=== PATIENT | male | born 1950 | race Caucasian/White ===

== ENCOUNTER 2017-11-19 10:12 | Emergency (ER) | payer OTHER ==
[2017-11-19 10:42] LABS: Absolute Lymphocytes (CBC) 1.6 K/uL (0.7-4.9); Absolute Monocytes 0.8 K/uL (0.1-1.3); Absolute Neutrophil 4.7 K/uL (1.8-8.0); Basophils % 0.6 % (0-1.3); Eosinophils % 1.7 % (0-4.4); Hematocrit 36.2 % (39.6-49.0); Lymphocytes % 21.5 % (15.3-44.8); MCH 26.4 pg (27.0-35.0); MCV 79.3 fL (80-100); MPV 8.2 fL (7.6-11.3); Monocytes % 11.2 % (3.3-12.3); RBC Red Blood Cell Count 4.56 M/uL (4.33-5.43)
[2017-11-19 10:45] LABS: Protime INR 1.05
--- NOTE | 2017-11-19 10:52 | RAD REPORT ---
EXAM DESCRIPTION: RAD - Chest Single View - 11/19/2017 10:46 am CLINICAL HISTORY: CHEST PAIN Chest pain. COMPARISON: No comparisons FINDINGS: Portable technique limits examination quality. The lungs are grossly clear. The heart is upper limit normal with changes of prior CABG. No displaced fractures. IMPRESSION: No acute intrathoracic process suspected.
[2017-11-19 11:01] LABS: Albumin 3.7 g/dL (3.4-5.0); Bilirubin Direct 0.2 mg/dL (0-0.2); Bilirubin Total 0.8 mg/dL (0.2-1.0); Magnesium 2.1 mg/dL (1.8-2.4); Potassium 4.1 mmol/L (3.5-5.1); Protein, Total 7.5 g/dL (6.4-8.2); Troponin (Emerg Dept Use Only) 0.15 ng/mL (0.0-0.045)
[2017-11-19] MEDS ORDERED: NA CHLORIDE 0.9% 1,000 ML ONE (11:22)
--- NOTE | 2017-11-19 11:41 | ER ---
Nurse's Notes [facility] Name: Elia Joshua Age: 67 yrs Sex: Male : 1950 Arrival Date: 11/19/2017 Time: 10:18 Bed 6 Private MD: Diagnosis: Chest pain, unspecified;Type 2 diabetes mellitus;Essential (primary) hypertension;Non-ST elevation (NSTEMI) myocardial infarction Presentation: 11/19 10:18 Presenting complaint: Patient states: chest pain that began 1 week ago. Pt was sent aa5 [facility] Pt reports he had CABG completed at the [facility] approximately 3 months ago and is currently taking Levaquin for a surgical site infection. Transition of care: patient was not received from another setting of care. Onset of symptoms was November 2017. Risk Assessment: Do you want to hurt yourself or someone else? Patient reports no desire to harm self or others. Initial Sepsis Screen: Does the patient meet any 2 criteria? No. Patient's initial sepsis screen is negative. Does the patient have a suspected source of infection? Yes: Other: surgical site infection. Care prior to arrival: Medication(s) given: ASA, 81 mg, x 4. 10:18 Method Of Arrival: EMS: [facility] aa5 10:18 Acuity: STEPHEN 2 aa5 Historical: - Allergies: 10:19 "a lot of cholesterol medicines"; aa5 - Home Meds: 10:25 Levaquin Oral [Active]; Metoprolol Tartrate Oral [Active]; Metformin Oral [Active]; aa5 atorvastatin oral oral [Active]; Aspirin Oral [Active]; - PMHx: 10:19 Hypertension; Hyperlipidemia; Diabetes - NIDDM; aa5 - PSHx: 10:19 CABG; Hand; Eye; aa5 - Immunization history:: Adult Immunizations. - Ebola Screening: : No symptoms or risks identified at this time. - Family history:: not pertinent. Screenin:20 Abuse screen: Denies threats or abuse. Nutritional screening: No deficits noted. aa5 Tuberculosis screening: No symptoms or risk factors identified. Fall Risk None identified. Assessment: 10:18 General: Appears comfortable, Behavior is calm, cooperative. Pain: Complains of pain in aa5 left shoulder, left scapula, and mid-sternal Pain does not radiate. Pain currently is 3 out of 10 on a pain scale. Quality of pain is described as pressure, sharp, Pain began 1 week ago Is continuous. Neuro: Level of Consciousness is awake, alert, obeys commands, Oriented to person, place, time, situation. Cardiovascular: Heart tones S1 S2 present Surgical incision noted to mid-sternal area, mildly red and with edges well-approximated, no drainage noted, small amount of scabs noted to site. . Rhythm is regular. Respiratory: Airway is patent Respiratory effort is even, unlabored, Respiratory pattern is regular, symmetrical, Breath sounds are clear bilaterally. GI: Abdomen is round non-distended, Bowel sounds present X 4 quads. Abd is soft and non tender X 4 quads. : No signs and/or symptoms were reported regarding the genitourinary system. EENT: No signs and/or symptoms were reported regarding the EENT system. Derm: Skin is pink, warm \\T\\ dry. Musculoskeletal: Range of motion: intact in all extremities. 11:00 Reassessment: Patient and/or family updated on plan of care and expected duration. Pain aa5 level reassessed. Patient is alert, oriented x 3, equal unlabored respirations, skin warm/dry/pink. Pain: Pain currently is 3 out of 10 on a pain scale. 12:00 Reassessment: Patient and/or family updated on plan of care and expected duration. Pain aa5 level reassessed. Patient is alert, oriented x 3, equal unlabored respirations, skin warm/dry/pink. 12:00 Pain: Pain currently is 4 out of 10 on a pain scale. aa5 13:00 Reassessment: Patient and/or family updated on plan of care and expected duration. Pain aa5 level reassessed. Patient is alert, oriented x 3, equal unlabored respirations, skin warm/dry/pink. 13:00 Pain: Pain currently is 2 out of 10 on a pain scale. aa5 14:00 Reassessment: Patient and/or family updated on plan of care and expected duration. Pain aa5 level reassessed. Patient is alert, oriented x 3, equal unlabored respirations, skin warm/dry/pink. Awaiting EMS for transfer . Pain: Pain currently is 2 out of 10 on a pain scale. 14:22 Reassessment: Patient is alert, oriented x 3, equal unlabored respirations, skin aa5 warm/dry/pink. Vital Signs: 10:20 BP 163 / 83; Pulse 70; Resp 14 S; Temp 98.1(O); Pulse Ox 98% on R/A; Weight 74.84 kg aa5 (R); Height 5 ft. 8 in. (172.72 cm) (R); Pain 3/10; 11:00 BP 127 / 76; Pulse 66; Resp 17; Pulse Ox 99% on R/A; tw2 12:00 BP 117 / 72; Pulse 61; Resp 16 S; Pulse Ox 98% on R/A; aa5 12:46 BP 115 / 82; Pulse 59; Resp 16; Pulse Ox 97% on R/A; tw2 13:15 BP 121 / 74; Pulse 55; Resp 24; Pulse Ox 97% on R/A; em1 14:11 BP 122 / 65; Pulse 56; Resp 16 S; Pulse Ox 98% on R/A; aa5 10:20 Body Mass Index 25.09 (74.84 kg, 172.72 cm) aa5 ED Course: 10:18 Patient arrived in ED. aa5 10:18 Arm band placed on Patient placed in an exam room, on a stretcher. aa5 10:18 Patient has correct armband on for positive identification. Placed in gown. Bed in low aa5 position. Call light in reach. Side rails up X2. cafeteria monitor on. Pulse ox on. NIBP on. 10:18 Patient maintains SpO2 saturation greater than 95% on room air. aa5 10:18 No provider procedures requiring assistance completed. aa5 10:19 Jaden Arriaga MD is Attending Physician. spenser 10:21 Triage completed. aa5 10:24 Suyapa Cross, NUSRAT is Primary Nurse. aa5 10:25 Initial lab(s) drawn, by ED staff, sent to lab. Inserted saline lock: 20 gauge in right aa5 hand, using aseptic technique. IV inserted by Vamsi Carlin technical writing lead/mgr. 10:26 EKG done, by artificial breeding technician. reviewed by Jaden Arriaga MD. at1 10:44 XRAY Chest (1 view) In Process Unspecified. EDMS 13:43 Report given to Yelena Mckinney RN at [facility]# [phone]. tw2 14:23 Patient transferred, IV remains in place. aa5 Administered Medications: 10:40 Drug: NS 0.9% 1000 ml Route: IV; Rate: 125 ml/hr; Site: right hand; aa5 14:00 Follow up: IV Status: Infusion continued upon transfer aa5 12:02 Drug: Zofran 4 mg Route: IVP; Site: right hand; tw2 12:15 Follow up: Response: No adverse reaction aa5 12:04 Drug: morphine 2 mg Route: IVP; Site: right hand; tw2 12:15 Follow up: Response: No adverse reaction aa5 12:06 Drug: Pepcid 20 mg Route: IVP; Site: right hand; tw2 12:15 Follow up: Response: No adverse reaction aa5 12:08 Drug: Lovenox 1 mg/kg Route: Sub-Q; Site: right lower abdomen; tw2 13:00 Follow up: Response: No adverse reaction aa5 12:09 Drug: Lopressor 25 mg Route: PO; tw2 13:00 Follow up: Response: No adverse reaction aa5 Outcome: 11:40 ER care complete, transfer ordered by MD. dueñas 14:22 Transferred by ground EMS to [facility] Transfer form completed. aa5 X-rays sent w/ patient. 14:22 Condition: stable 14:22 Instructed on the need for transfer, Demonstrated understanding of instructions. 14:23 Patient left the ED. aa5 Signatures: Dispatcher [employer] EDMS Jaden Arriaga MD MD cha Martinez, Eric em1 Suyapa Cross, RN RN aa5 Carmen Bender, flight operation coordinator EKG Tat1 Sharmila Lainez RN RN tw2 Corrections: (The following items were deleted from the chart) 13:16 13:13 BP 127 / 77; Pulse 100bpm; Resp 11bpm; Pulse Ox 100%; em1 em1
--- NOTE | 2017-11-19 11:41 | EDPHYS ---
Physician Documentation [facility] Name: Elia Joshua Age: 67 yrs Sex: Male : 1950 Arrival Date: 11/19/2017 Time: 10:18 Bed 6 Private MD: ED Physician Jaden Arriaga HPI: 11/19 11:33 This 67 yrs old Male presents to ER via EMS with complaints of Chest Pain. spenser 11:33 The patient or guardian reports chest pain that is located primarily in the substernal spenser area, anterior chest wall. Onset: 2 day(s) ago. The pain radiates to Associated signs and symptoms: The patient has no apparent associated signs or symptoms. The chest pain is described as a pressure, squeezing. Duration: The patient or guardian reports a single episode, that is still ongoing, but improving. Modifying factors: The symptoms are alleviated by. Severity of pain: At its worst the pain was moderate in the emergency department the pain has improved moderately. Historical: - Allergies: 10:19 "a lot of cholesterol medicines"; aa5 - Home Meds: 10:25 Levaquin Oral [Active]; Metoprolol Tartrate Oral [Active]; Metformin Oral [Active]; aa5 atorvastatin oral oral [Active]; Aspirin Oral [Active]; - PMHx: 10:19 Hypertension; Hyperlipidemia; Diabetes - NIDDM; aa5 - PSHx: 10:19 CABG; Hand; Eye; aa5 - Immunization history:: Adult Immunizations. - Ebola Screening: : No symptoms or risks identified at this time. - Family history:: not pertinent. ROS: 11:33 Constitutional: Negative for fever, chills, and weight loss, Eyes: Negative for injury, spenser pain, redness, and discharge, ENT: Negative for injury, pain, and discharge, Neck: Negative for injury, pain, and swelling, Respiratory: Negative for shortness of breath, cough, wheezing, and pleuritic chest pain, Abdomen/GI: Negative for abdominal pain, nausea, vomiting, diarrhea, and constipation, Back: Negative for injury and pain, : Negative for injury, bleeding, discharge, and swelling, MS/Extremity: Negative for injury and deformity, Skin: Negative for injury, rash, and discoloration, Neuro: Negative for headache, weakness, numbness, tingling, and seizure, Psych: Negative for depression, anxiety, suicide ideation, homicidal ideation, and hallucinations, Allergy/Immunology: Negative for hives, rash, and allergies, Endocrine: Negative for neck swelling, polydipsia, polyuria, polyphagia, and marked weight changes, Hematologic/Lymphatic: Negative for swollen nodes, abnormal bleeding, and unusual bruising. 11:33 Cardiovascular: Positive for chest pain, of the chest. Exam: 11:33 Constitutional: This is a well developed, well nourished patient who is awake, alert, spenser and in no acute distress. Head/Face: Normocephalic, atraumatic. Eyes: Pupils equal round and reactive to light, extra-ocular motions intact. Lids and lashes normal. Conjunctiva and sclera are non-icteric and not injected. Cornea within normal limits. Periorbital areas with no swelling, redness, or edema. ENT: Nares patent. No nasal discharge, no septal abnormalities noted. Tympanic membranes are normal and external auditory canals are clear. Oropharynx with no redness, swelling, or masses, exudates, or evidence of obstruction, uvula midline. Mucous membranes moist. Neck: Trachea midline, no thyromegaly or masses palpated, and no cervical lymphadenopathy. Supple, full range of motion without nuchal rigidity, or vertebral point tenderness. No Meningismus. Chest/axilla: Normal chest wall appearance and motion. Nontender with no deformity. No lesions are appreciated. Respiratory: Lungs have equal breath sounds bilaterally, clear to auscultation and percussion. No rales, rhonchi or wheezes noted. No increased work of breathing, no retractions or nasal flaring. Abdomen/GI: Soft, non-tender, with normal bowel sounds. No distension or tympany. No guarding or rebound. No evidence of tenderness throughout. Back: No spinal tenderness. No costovertebral tenderness. Full range of motion. Skin: Warm, dry with normal turgor. Normal color with no rashes, no lesions, and no evidence of cellulitis. MS/ Extremity: Pulses equal, no cyanosis. Neurovascular intact. Full, normal range of motion. Neuro: Awake and alert, GCS 15, oriented to person, place, time, and situation. Cranial nerves II-XII grossly intact. Motor strength 5/5 in all extremities. Sensory grossly intact. Cerebellar exam normal. Normal gait. Psych: Awake, alert, with orientation to person, place and time. Behavior, mood, and affect are within normal limits. 11:33 Cardiovascular: Rate: normal, Rhythm: regular, Pulses: Pulses are 4+ in bilateral radial, brachial, femoral, popliteal, posterior tibial and and dorsalis pedis arteries.. Heart sounds: normal, Edema: is not appreciated. Vital Signs: 10:20 BP 163 / 83; Pulse 70; Resp 14 S; Temp 98.1(O); Pulse Ox 98% on R/A; Weight 74.84 kg aa5 (R); Height 5 ft. 8 in. (172.72 cm) (R); Pain 3/10; 11:00 BP 127 / 76; Pulse 66; Resp 17; Pulse Ox 99% on R/A; tw2 12:00 BP 117 / 72; Pulse 61; Resp 16 S; Pulse Ox 98% on R/A; aa5 12:46 BP 115 / 82; Pulse 59; Resp 16; Pulse Ox 97% on R/A; tw2 13:15 BP 121 / 74; Pulse 55; Resp 24; Pulse Ox 97% on R/A; em1 14:11 BP 122 / 65; Pulse 56; Resp 16 S; Pulse Ox 98% on R/A; aa5 10:20 Body Mass Index 25.09 (74.84 kg, 172.72 cm) aa5 MDM: 10:20 Patient medically screened. [facility] 11:36 Data reviewed: vital signs, nurses notes, lab test result(s), EKG, radiologic studies, spenser plain films. 11/19 10:22 Order name: Basic Metabolic Panel [facility] 11/19 10:22 Order name: CBC with Diff; Complete Time: 11:41 [facility] 11/19 10:22 Order name: LFT's; Complete Time: 11:41 [facility] 11/19 10:22 Order name: Magnesium; Complete Time: 11:41 [facility] 11/19 10:22 Order name: NT PRO-BNP; Complete Time: 11:41 [facility] 11/19 10:22 Order name: PT-INR; Complete Time: 11:41 [facility] 11/19 10:22 Order name: Troponin (emerg Dept Use Only); Complete Time: 11:41 [facility] 11/19 10:22 Order name: XRAY Chest (1 view); Complete Time: 11:41 [facility] 11/19 10:22 Order name: Lipase; Complete Time: 11:41 [facility] 11/19 10:22 Order name: Basic Metabolic Panel; Complete Time: 11:41 [facility] 11/19 10:22 Order name: EKG; Complete Time: 10:23 [facility] 11/19 10:22 Order name: Cardiac monitoring; Complete Time: 10:26 [facility] 11/19 10:22 Order name: EKG - Nurse/Tech; Complete Time: 10:26 [facility] 11/19 10:22 Order name: IV Saline Lock; Complete Time: 10:54 [facility] 11/19 10:22 Order name: Labs collected and sent; Complete Time: 10:54 [facility] 11/19 10:22 Order name: O2 Per Protocol; Complete Time: 10: [facility] 11/19 10:22 Order name: O2 Sat Monitoring; Complete Time: 10: [facility] Administered Medications: 10:40 Drug: NS 0.9% 1000 ml Route: IV; Rate: 125 ml/hr; Site: right hand; aa5 14:00 Follow up: IV Status: Infusion continued upon transfer aa5 12:02 Drug: Zofran 4 mg Route: IVP; Site: right hand; tw2 12:15 Follow up: Response: No adverse reaction aa5 12:04 Drug: morphine 2 mg Route: IVP; Site: right hand; tw2 12:15 Follow up: Response: No adverse reaction aa5 12:06 Drug: Pepcid 20 mg Route: IVP; Site: right hand; tw2 12:15 Follow up: Response: No adverse reaction aa5 12:08 Drug: Lovenox 1 mg/kg Route: Sub-Q; Site: right lower abdomen; tw2 13:00 Follow up: Response: No adverse reaction aa5 12:09 Drug: Lopressor 25 mg Route: PO; tw2 13:00 Follow up: Response: No adverse reaction aa5 Disposition: 11/19/17 11:40 Transfer ordered to [facility]. Diagnosis are Chest pain, unspecified, Type 2 diabetes mellitus, Essential (primary) hypertension, Non-ST elevation (NSTEMI) myocardial infarction. - Reason for transfer: Higher level of care. - Accepting physician is to [facility]. - Condition is Fair. - Problem is new. - Symptoms have improved. Signatures: Dispatcher [employer] EDMS Jaden Arriaga MD MD cha Calderon, Audri RN RN aa5 Sharmila Lainez RN RN tw2 Corrections: (The following items were deleted from the chart) 11:45 11:40 11/19/2017 11:40 Transfer ordered to [facility]. Diagnosis is Chest pain, unspecified; Type 2 diabetes mellitus; Essential (primary) hypertension. Reason for transfer: Higher level of care. Accepting physician is to [facility]. Condition is Fair. Problem is new. Symptoms have improved. [facility] 14:23 11:45 11/19/2017 11:40 Transfer ordered to [address] Diagnosis is Chest pain, unspecified; Type 2 diabetes mellitus; Essential (primary) hypertension; Non-ST elevation (NSTEMI) myocardial infarction. Reason for transfer: Higher level of care. Accepting physician is to [facility]. Condition is Fair. Problem is new. Symptoms have improved. spenser
[2017-11-19] MEDS ORDERED: MORPHINE 4 MG/ML SYR ONE (12:05)
[2017-11-19] MEDS ORDERED: ENOXAPARIN 80 MG/0.8 ML SQ ONE (12:06)
[2017-11-19] MEDS ORDERED: METOPROLOL TAR 25 MG TAB ONE (12:06)
[2017-11-19] MEDS ORDERED: FAMOTIDINE 20 MG/2 ML VIAL IV ONE (12:06)
[2017-11-19] MEDS ORDERED: ONDANSETRON 4 MG/2 ML VIAL ONE (12:06)
--- NOTE | 2017-11-19 12:07 | EKG ---
Test Date: 2017-11-19 Test Time: 10:19:02 Director Of Plant Operations: DAVON MEASUREMENT RESULTS: Intervals: Rate: 67 SD: 164 QRSD: 154 QT: 424 QTc: 448 [place]: P: 12 SD: 164 QRS: -77 T: 14 INTERPRETIVE STATEMENTS: Normal sinus rhythm Left axis deviation Right bundle branch block Inferior infarct, age undetermined Abnormal ECG No previous ECG available for comparison Electronically Signed On 11-19-17 12:06:59 CDT by Kedar Carcamo
== END 2017-11-19 14:23 ==
LOC: ER 10:12
DX: I21.4 Non-ST elevation (NSTEMI) myocardial infarction (principal); I10 Essential (primary) hypertension; E11.9 Type 2 diabetes mellitus without complications; E78.5 Hyperlipidemia, unspecified; Z95.1 Presence of aortocoronary bypass graft
CPT/HCPCS: 36415; 71045; 80048; 80076; 83690; 83735; 83880; 84484; 85025; 85610; 93005; 96361; 96372; 96374; 96375; 99285; J1650; J2405; J7030